=== PATIENT | male | born 1960 | race Caucasian/White ===

== ENCOUNTER 2019-02-23 21:45 | Inpatient (IN) ==
[2019-02-23] MEDS ORDERED: Calcium Gluconate 2,000 MG in 0.9 % Sodium Chloride 100 ML IVPB ONE (22:10)
[2019-02-24] MEDS ORDERED: Mag Hydrox/Al Hydrox/Simeth 30 ML UDC PO PRN (02:34)
[2019-02-24] MEDS ORDERED: *HR* LORazepam 2 MG/ML VIAL IM PRN (02:34)
[2019-02-24] MEDS ORDERED: MOM Conc 10 ML UD.LIQ PO PRN (02:34)
[2019-02-24] MEDS ORDERED: Haloperidol Lactate 5 MG/ML VIAL IM PRN (02:34)
[2019-02-24] MEDS ORDERED: *HR* LORazepam 1 MG TABLET PO PRN (02:34)
[2019-02-24] MEDS: *HR* LORazepam 1 MG TABLET PO SCH ×4 (09:04→22:33)
[2019-02-24] MEDS: Folic Acid 1 MG TABLET PO SCH (09:05)
[2019-02-24] MEDS: Thiamine (B-1) 100 MG TABLET PO SCH (09:05)
[2019-02-24] MEDS: FLUoxetine 20 MG CAPSULE PO SCH (14:15)
[2019-02-24] MEDS: Gabapentin 300 MG CAPSULE PO SCH ×2 (14:15→22:26)
[2019-02-25] MEDS ORDERED: *HR* LORazepam 1 MG TABLET PO PRN ×4 (01:11→08:54)
[2019-02-25 08:07] LABS: Hepatitis B Surface Antigen Nonreactive (Nonreactive)
[2019-02-25] MEDS: Gabapentin 300 MG CAPSULE PO SCH ×3 (08:24→23:04)
[2019-02-25] MEDS: Thiamine (B-1) 100 MG TABLET PO SCH (08:25)
[2019-02-25] MEDS: FLUoxetine 20 MG CAPSULE PO SCH (08:25)
[2019-02-25] MEDS: Folic Acid 1 MG TABLET PO SCH (08:25)
[2019-02-25] MEDS: *HR* LORazepam 1 MG TABLET PO SCH ×4 (09:50→20:00)
[2019-02-26] MEDS: Gabapentin 300 MG CAPSULE PO SCH ×3 (09:02→21:21)
[2019-02-26] MEDS: Thiamine (B-1) 100 MG TABLET PO SCH (09:02)
[2019-02-26] MEDS: Folic Acid 1 MG TABLET PO SCH (09:02)
[2019-02-26] MEDS: FLUoxetine 20 MG CAPSULE PO SCH (09:02)
[2019-02-26] MEDS: *HR* LORazepam 1 MG TABLET PO SCH ×5 (09:06→21:20)
[2019-02-26] MEDS: Sulfamethoxazole/Trimeth DS 1 EACH TABLET PO SCH ×2 (17:45→21:27)
[2019-02-26] MEDS: hydrOXYzine pamoate 25 MG CAPSULE PO PRN (21:20)
[2019-02-26] MEDS: Acetaminophen 325 MG TABLET PO PRN (21:20)
[2019-02-27] MEDS: Sulfamethoxazole/Trimeth DS 1 EACH TABLET PO SCH ×2 (08:49→20:59)
[2019-02-27] MEDS: Thiamine (B-1) 100 MG TABLET PO SCH (08:50)
[2019-02-27] MEDS: Folic Acid 1 MG TABLET PO SCH (08:50)
[2019-02-27] MEDS: FLUoxetine 20 MG CAPSULE PO SCH (08:50)
[2019-02-27] MEDS: Gabapentin 300 MG CAPSULE PO SCH ×3 (08:51→20:59)
[2019-02-27] MEDS: *HR* LORazepam 1 MG TABLET PO SCH (08:52)
[2019-02-27 23:19] LABS: Hepatitis B Core IgM Nonreactive (Nonreactive)
[2019-02-27 23:21] LABS: Hepatitis A Antibody IgM Nonreactive (Nonreactive)
[2019-02-28 00:25] LABS: Hepatitis C Virus Antibody Reactive (Nonreactive)
[2019-02-28] MEDS: Sulfamethoxazole/Trimeth DS 1 EACH TABLET PO SCH ×2 (09:07→20:33)
[2019-02-28] MEDS: FLUoxetine 20 MG CAPSULE PO SCH (09:07)
[2019-02-28] MEDS: Gabapentin 300 MG CAPSULE PO SCH ×3 (09:07→20:33)
[2019-02-28] MEDS: Thiamine (B-1) 100 MG TABLET PO SCH (09:07)
[2019-02-28] MEDS: Folic Acid 1 MG TABLET PO SCH (09:07)
[2019-02-28] MEDS: hydrOXYzine pamoate 25 MG CAPSULE PO PRN (20:33)
[2019-02-28] MEDS: traZODone 50 MG TABLET PO PRN (20:33)
[2019-03-01] MEDS: Thiamine (B-1) 100 MG TABLET PO SCH (08:31)
[2019-03-01] MEDS: Folic Acid 1 MG TABLET PO SCH (08:31)
[2019-03-01] MEDS: Sulfamethoxazole/Trimeth DS 1 EACH TABLET PO SCH ×2 (08:32→21:42)
[2019-03-01] MEDS: FLUoxetine 20 MG CAPSULE PO SCH (08:32)
[2019-03-01] MEDS: Gabapentin 300 MG CAPSULE PO SCH ×3 (08:32→21:42)
[2019-03-01] MEDS: Acetaminophen 325 MG TABLET PO PRN (14:29)
[2019-03-01] MEDS: hydrOXYzine pamoate 25 MG CAPSULE PO PRN (21:42)
[2019-03-01] MEDS: traZODone 50 MG TABLET PO PRN (21:42)
[2019-03-02] MEDS: Acetaminophen 325 MG TABLET PO PRN (00:21)
[2019-03-02] MEDS: Thiamine (B-1) 100 MG TABLET PO SCH (08:55)
[2019-03-02] MEDS: Sulfamethoxazole/Trimeth DS 1 EACH TABLET PO SCH (08:55)
[2019-03-02] MEDS: Folic Acid 1 MG TABLET PO SCH (08:55)
[2019-03-02] MEDS: Gabapentin 300 MG CAPSULE PO SCH (08:55)
[2019-03-02] MEDS: FLUoxetine 20 MG CAPSULE PO SCH (08:55)
[2019-03-02 09:10] VITALS: BP 110/69
== END 2019-03-02 14:25 | disposition home or self-care (01) | DRG 751 ==
LOC: EMEROOARM 21:45 → SUATTDRO 02-24 02:24 → 1ANU 02-24 02:24
PROVIDERS: ADMIT Psychiatry & Neurology Psychiatry; ATTEND Psychiatry & Neurology Psychiatry

== ENCOUNTER 2019-05-02 04:40 | Inpatient (IN) ==
[2019-05-02 05:19] LABS: Basophils # 0.1 K/mcL (0.0-0.2); Basophils % 0.7 %; Bilirubin,Urine Negative (Negative); Blood,Urine Negative (Negative); Clarity,Urine Clear (Clear); Color,Urine Yellow (Yellow); Eosinophils # 0.3 K/mcL (0.0-0.6); Eosinophils % 3.3 %; Glucose,Urine (UA) Normal (Normal); Hematocrit 38.3 % (37.5-50.1); Hemoglobin 13.5 g/dL (12.9-16.9); Immature Granulocytes % 0.3 % (0-4); Ketones,Urine Negative (Negative); Leukocyte Esterase,Urine Negative (Negative); Lymphocytes # 2.9 K/mcL (0.6-4.6); Lymphocytes % 38.4 %; Mean Corpuscular HGB Conc 35.2 g/dL (31.6-35.5); Mean Corpuscular Hemoglobin 33.8 pg (28.0-33.3); Mean Corpuscular Volume 95.8 fL (83.0-100.0); Mean Platelet Volume 10.9 fL (9.4-12.4); Monocytes % 13.7 %; Neutrophils # 3.3 K/mcL (1.6-8.9); Nitrite,Urine Negative (Negative); Platelet Count 112 K/mcL (140-400); Protein,Urine Negative (Neg-Trace); Red Cell Distribution Width 15.5 % (11.5-14.5); Segmented Neutrophils % 43.6 %; Specific Gravity,Urine 1.009 (1.010-1.025); Urobilinogen,Urine Normal (Normal); White Blood Count 7.5 K/mcL (4.3-11.1)
[2019-05-02 05:40] LABS: Acetaminophen < 10 mcg/mL (10-20); BUN/Creatinine Ratio 18 (6-26); Blood Urea Nitrogen 10 mg/dL (6-20); Calcium 8.9 mg/dL (8.6-10.3); Carbon Dioxide 19 mEq/L (23-29); Chloride 108 mEq/L (98-107); Ethanol 343 mg/dL (Less than 10); Glucose 117 mg/dL (70-105); Magnesium 2.1 mg/dL (1.6-2.6); Osmolality,Calculated 292 (280-300); Potassium 4.1 mEq/L (3.5-5.1); Salicylate < 2.5 mg/dL (15.0-30.0); Sodium 141 mEq/L (136-145); eGFR For African Americans > 60 (> 60); eGFR For Non-African Americans > 60 (> 60)
[2019-05-02 05:44] LABS: Amphetamine Screen,Urine Positive ng/mL (Cutoff=1000); Barbiturate Screen,Urine Negative ng/mL (Cutoff=200); Benzodiazepines Screen,Urine Negative ng/mL (Cutoff=200); Cannabinoid Screen,Urine Negative ng/mL (Cutoff = 50); Cocaine Screen,Urine Negative ng/mL (Cutoff= 300); Opiate Screen,Urine Negative ng/mL (Cutoff=300); Phencyclidine Screen,Urine Negative ng/mL (Cutoff=25)
[2019-05-02] MEDS ORDERED: Naloxone 0.4 MG/ML INJ IVP PRN (07:28)
[2019-05-02] MEDS ORDERED: traZODone 50 MG TABLET PO PRN (08:00)
[2019-05-02] MEDS ORDERED: hydrOXYzine pamoate 25 MG CAPSULE PO PRN (08:00)
[2019-05-02] MEDS ORDERED: *HR* LORazepam 1 MG TABLET PO SCH (08:15)
[2019-05-02] MEDS ORDERED: Folic Acid 1 MG TABLET PO SCH (09:00)
[2019-05-02] MEDS ORDERED: Thiamine (B-1) 100 MG TABLET PO SCH (09:00)
[2019-05-02] MEDS ORDERED: FLUoxetine 20 MG CAPSULE PO SCH (09:00)
[2019-05-02] MEDS: Gabapentin 300 MG CAPSULE PO SCH ×2 (09:25→16:33)
[2019-05-02] MEDS ORDERED: *HR* LORazepam 2 MG/ML VIAL IVP PRN ×2 (12:59)
[2019-05-02] MEDS: *HR* LORazepam 2 MG/ML VIAL IVP PRN ×2 (13:54→17:31)
[2019-05-02] MEDS ORDERED: Acetaminophen 325 MG TABLET PO PRN (14:41)
[2019-05-02 15:38] VITALS: BP 126/71
[2019-05-02] MEDS ORDERED: *HR* Heparin 5,000 UNIT/ML VIAL SQ SCH (18:00)
== END 2019-05-02 18:00 | DRG 751 ==
LOC: EMEROOARM 04:40 → CDU 04:40
PROVIDERS: ADMIT Family Medicine; ATTEND Family Medicine

== ENCOUNTER 2019-05-28 06:09 | Inpatient (IN) ==
[2019-05-28] MEDS ORDERED: CeFAZolin Syr 2,000MG/20 ML 2,000 MG/20 ML SYRINGE IVPB ONE (06:29)
[2019-05-28] MEDS ORDERED: Ringers Solution, Lactated 1,000 ML IVC SCH ×2 (06:30→10:21)
[2019-05-28] MEDS ORDERED: *HR* FentaNYL (PF) 100 MCG/2 ML VIAL ONE (07:00)
[2019-05-28] MEDS ORDERED: *HR* Midazolam HCl 2 MG/2 ML VIAL ONE (07:00)
[2019-05-28] MEDS ORDERED: *HR* Propofol 200 MG/20 ML VIAL IVP ONE (07:00)
[2019-05-28] MEDS ORDERED: *HR* Succinylcholine 200 MG/10 ML VIAL IVP ONE (07:01)
[2019-05-28] MEDS ORDERED: Ondansetron 4 MG/2 ML VIAL ONE (07:01)
[2019-05-28] MEDS ORDERED: Lidocaine -MPF 2% 2 ML VIAL ONE (07:01)
[2019-05-28] MEDS ORDERED: Lidocaine HCL 4 ML Topical Solution (Laryng-O-Jet Kit Sterile Pak) TP ONE (07:01)
[2019-05-28] MEDS ORDERED: Dexamethasone 4 MG/ML VIAL ONE (07:01)
[2019-05-28] MEDS ORDERED: Ropivacaine/PF 0.5% 30 ML VIAL ONE (07:14)
[2019-05-28] MEDS ORDERED: Famotidine 20 MG/2 ML VIAL IVP ONE (07:17)
[2019-05-28] MEDS ORDERED: Acetaminophen IV 1,000 MG/100 ML INFUS..BTL IVPB ONE (07:17)
[2019-05-28] MEDS ORDERED: Pregabalin 75 MG CAPSULE PO ONE (07:17)
[2019-05-28] MEDS ORDERED: Ethanol\\Acetic Acid\\Na Ace\\Ben 1,000 ML IRRIG.SOLN IR ONE (07:23)
[2019-05-28] MEDS ORDERED: EPHEDrine 50 MG/ML VIAL ONE (08:29)
[2019-05-28] MEDS ORDERED: *HR* HYDROmorphone 2 MG TABLET PO PRN (08:31)
[2019-05-28] MEDS ORDERED: *HR* Labetalol 20 MG/4 ML SYRINGE IVP PRN (08:31)
[2019-05-28] MEDS ORDERED: *HR* OxyCODONE Immed Rel 5 MG TABLET PO PRN (08:31)
[2019-05-28] MEDS ORDERED: *HR* Promethazine 25 MG/ML VIAL IVP PRN (08:31)
[2019-05-28] MEDS ORDERED: Ketorolac 30 MG/ML VIAL ONE (09:01)
[2019-05-28] MEDS: *HR* HYDROmorphone (PF) 1 MG/ML SYRINGE IVP PRN ×2 (09:31→09:38)
[2019-05-28 10:11] LABS: Hematocrit 37.2 % (37.5-50.1); Hemoglobin 12.6 g/dL (12.9-16.9)
[2019-05-28] MEDS ORDERED: Naloxone 0.4 MG/ML INJ IVP PRN (10:21)
[2019-05-28] MEDS ORDERED: Ondansetron 4 MG/2 ML VIAL IVP PRN (10:21)
[2019-05-28] MEDS ORDERED: *HR* OxyCODONE/APAP 5/325 TABLET PO PRN (10:21)
[2019-05-28] MEDS ORDERED: MOM Conc 10 ML UD.LIQ PO PRN (10:21)
[2019-05-28] MEDS ORDERED: Sennosides 8.6 MG TABLET PO PRN (10:21)
[2019-05-28] MEDS ORDERED: Temazepam 15 MG CAPSULE PO PRN (10:21)
[2019-05-28] MEDS ORDERED: *HR* PHENYLEPHRINE 1,000 MCG/10 ML SYRINGE IVP ONE (11:01)
[2019-05-28] MEDS: FLUoxetine 20 MG CAPSULE PO SCH (11:32)
[2019-05-28] MEDS: Gabapentin 300 MG CAPSULE PO SCH ×2 (16:32→21:24)
[2019-05-28] MEDS ORDERED: *HR* Enoxaparin 30 MG/0.3 ML SYRINGE SQ SCH (18:00)
[2019-05-28] MEDS: *HR* OxyCODONE Immed Rel 5 MG TABLET PO PRN ×2 (18:10→23:50)
[2019-05-28] MEDS: *HR* Enoxaparin 30 MG/0.3 ML SYRINGE SQ SCH (18:11)
[2019-05-29] MEDS: *HR* OxyCODONE Immed Rel 5 MG TABLET PO PRN ×2 (06:10→10:21)
[2019-05-29] MEDS: *HR* Enoxaparin 30 MG/0.3 ML SYRINGE SQ SCH (06:18)
[2019-05-29 06:43] LABS: Hemoglobin 11.9 g/dL (12.9-16.9)
[2019-05-29 07:02] LABS: BUN/Creatinine Ratio 21 (6-26); Blood Urea Nitrogen 15 mg/dL (6-20); Calcium 8.8 mg/dL (8.6-10.3); Carbon Dioxide 24 mEq/L (23-29); Chloride 104 mEq/L (98-107); Glucose 143 mg/dL (70-105); Osmolality,Calculated 285 (280-300); Potassium 4.5 mEq/L (3.5-5.1); Sodium 136 mEq/L (136-145); eGFR For African Americans > 60 (> 60); eGFR For Non-African Americans > 60 (> 60)
[2019-05-29] MEDS: FLUoxetine 20 MG CAPSULE PO SCH (09:22)
[2019-05-29] MEDS: Gabapentin 300 MG CAPSULE PO SCH (09:23)
[2019-05-29 11:34] VITALS: BP 134/81
== END 2019-05-29 11:56 | disposition home health service (06) | DRG 322 ==
LOC: SAMDAY 06:09 → 3NENU 10:14
PROVIDERS: ADMIT Orthopaedic Surgery; ATTEND Orthopaedic Surgery

== ENCOUNTER 2019-05-29 18:25 | Observation (INO) ==
[2019-05-29] MEDS ORDERED: 0.9 % Sodium Chloride 1,000 ML IVC ONE (18:34)
[2019-05-29 18:58] LABS: Eosinophils % 0.2 %; Hematocrit 38.4 % (37.5-50.1); Hemoglobin 12.6 g/dL (12.9-16.9); Immature Granulocytes % 0.5 % (0-4); Lymphocytes % 13.7 %; Mean Corpuscular HGB Conc 32.8 g/dL (31.6-35.5); Mean Corpuscular Hemoglobin 32.8 pg (28.0-33.3); Mean Platelet Volume 10.9 fL (9.4-12.4); Monocytes % 7.9 %; Platelet Count 103 K/mcL (140-400); Red Blood Count 3.84 M/mcL (4.19-5.50); Red Cell Distribution Width 13.4 % (11.5-14.5); Segmented Neutrophils % 77.5 %; White Blood Count 16.5 K/mcL (4.3-11.1)
[2019-05-29 18:59] LABS: Basophils % 0.2 %; Lymphocytes # 2.3 K/mcL (0.6-4.6); Monocytes # 1.3 K/mcL (0.0-1.3); Neutrophils # 12.8 K/mcL (1.6-8.9)
[2019-05-29 19:02] LABS: INR 1.3; Prothrombin Time 14.6 Seconds (9.4-12.1)
[2019-05-29 19:05] LABS: Activated Partial Thrombo Time 28.9 Seconds (26.0-36.0)
[2019-05-29 19:16] LABS: Alanine Aminotransferase 26 Units/L (7-52); Albumin 3.5 g/dL (3.5-5.7); Albumin/Globulin Ratio 0.9 (1.1-2.2); Alkaline Phosphatase 131 Units/L (34-104); Aspartate Amino Transferase 44 Units/L (13-39); BUN/Creatinine Ratio 19 (6-26); Bilirubin,Direct 0.2 mg/dL (0.0-0.2); Bilirubin,Indirect 0.5 mg/dL (0.0-1.0); Bilirubin,Total 0.7 mg/dL (0.3-1.0); Blood Urea Nitrogen 18 mg/dL (6-20); Calcium 8.7 mg/dL (8.6-10.3); Carbon Dioxide 21 mEq/L (23-29); Chloride 103 mEq/L (98-107); Ethanol < 10 mg/dL (Less than 10); Globulin 3.9 g/dL (2.4-3.5); Glucose 147 mg/dL (70-105); Osmolality,Calculated 289 (280-300); Potassium 3.9 mEq/L (3.5-5.1); Sodium 137 mEq/L (136-145); Total Protein 7.4 g/dL (6.4-8.9); Troponin I < 0.03 ng/mL (< 0.04); eGFR For African Americans > 60 (> 60); eGFR For Non-African Americans > 60 (> 60)
[2019-05-29 20:52] LABS: Bilirubin,Urine Negative (Negative); Blood,Urine Negative (Negative); Clarity,Urine Clear (Clear); Color,Urine Yellow (Yellow); Glucose,Urine (UA) Normal (Normal); Ketones,Urine Negative (Negative); Leukocyte Esterase,Urine Negative (Negative); Nitrite,Urine Negative (Negative); Protein,Urine Trace mg/dL (Neg-Trace); Specific Gravity,Urine 1.024 (1.010-1.025); Urobilinogen,Urine Normal (Normal)
[2019-05-29 21:19] LABS: Amphetamine Screen,Urine Negative ng/mL (Cutoff=1000); Barbiturate Screen,Urine Negative ng/mL (Cutoff=200); Benzodiazepines Screen,Urine Positive ng/mL (Cutoff=200); Cannabinoid Screen,Urine Negative ng/mL (Cutoff = 50); Cocaine Screen,Urine Negative ng/mL (Cutoff= 300); Opiate Screen,Urine Positive ng/mL (Cutoff=300); Phencyclidine Screen,Urine Negative ng/mL (Cutoff=25)
[2019-05-29] MEDS ORDERED: *HR* OxyCODONE Immed Rel 15 MG TABLET PO STA (21:51)
[2019-05-29] MEDS ORDERED: *HR* OxyCODONE Immed Rel 5 MG TABLET PO STA (21:53)
[2019-05-30] MEDS ORDERED: Acetaminophen 325 MG TABLET PO PRN (07:22)
[2019-05-30] MEDS ORDERED: Ondansetron 4 MG/2 ML VIAL IVP PRN (07:22)
[2019-05-30] MEDS ORDERED: Naloxone 0.4 MG/ML INJ IVP PRN (07:22)
[2019-05-30] MEDS ORDERED: Ringers Solution, Lactated 1,000 ML IVC SCH (07:30)
[2019-05-30] MEDS: FLUoxetine 20 MG CAPSULE PO SCH (09:56)
[2019-05-30] MEDS: *HR* OxyCODONE/APAP 5/325 TABLET PO PRN ×3 (09:57→22:25)
[2019-05-30] MEDS: Ampicillin/Sulbactam 1,500 MG in 0.9 % Sodium Chloride Mini Bag 100 ML IVPB SCH ×4 (09:57→22:25)
[2019-05-30] MEDS: Gabapentin 300 MG CAPSULE PO SCH ×3 (09:57→20:09)
[2019-05-30] MEDS: *HR* Heparin 5,000 UNIT/ML VIAL SQ SCH ×2 (16:08→20:09)
[2019-05-30] MEDS ORDERED: traZODone 50 MG TABLET PO PRN (21:00)
[2019-05-31] MEDS: *HR* OxyCODONE/APAP 5/325 TABLET PO PRN ×2 (04:33→10:06)
[2019-05-31] MEDS: *HR* Heparin 5,000 UNIT/ML VIAL SQ SCH (05:05)
[2019-05-31] MEDS: Ampicillin/Sulbactam 1,500 MG in 0.9 % Sodium Chloride Mini Bag 100 ML IVPB SCH (05:06)
[2019-05-31] MEDS: FLUoxetine 20 MG CAPSULE PO SCH (10:06)
[2019-05-31] MEDS: Gabapentin 300 MG CAPSULE PO SCH (10:06)
[2019-05-31 10:55] VITALS: BP 106/54
[2019-05-31 12:19] LABS: Red Cell Distribution Width 12.9 % (11.5-14.5)
[2019-05-31 12:21] LABS: Hematocrit 31.6 % (37.5-50.1); Hemoglobin 10.9 g/dL (12.9-16.9); Immature Platelets 6.2 % (1.1-6.1); Mean Corpuscular HGB Conc 34.5 g/dL (31.6-35.5); Mean Corpuscular Hemoglobin 33.3 pg (28.0-33.3); Mean Corpuscular Volume 96.6 fL (83.0-100.0); Red Blood Count 3.27 M/mcL (4.19-5.50); White Blood Count 5.1 K/mcL (4.3-11.1)
[2019-05-31 12:50] LABS: BUN/Creatinine Ratio 15 (6-26); Blood Urea Nitrogen 11 mg/dL (6-20); Calcium 8.4 mg/dL (8.6-10.3); Carbon Dioxide 24 mEq/L (23-29); Chloride 106 mEq/L (98-107); Glucose 115 mg/dL (70-105); Osmolality,Calculated 284 (280-300); Potassium 3.6 mEq/L (3.5-5.1); Sodium 137 mEq/L (136-145); eGFR For African Americans > 60 (> 60); eGFR For Non-African Americans > 60 (> 60)
== END 2019-05-31 13:30 | disposition home or self-care (01) ==
LOC: CDU 18:25 → EMEROOARM 18:25 → CDU 23:33 → 3BNU 05-30 14:41
PROVIDERS: ADMIT Family Medicine; ATTEND Family Medicine

== ENCOUNTER 2019-06-03 02:40 | Inpatient (IN) ==
[2019-06-03 03:55] LABS: Bilirubin,Urine Small (Negative); Blood,Urine Negative (Negative); Clarity,Urine Clear (Clear); Color,Urine Dark Yellow (Yellow); Glucose,Urine (UA) Normal (Normal); Ketones,Urine Negative (Negative); Leukocyte Esterase,Urine Negative (Negative); Nitrite,Urine Negative (Negative); PH,Urine 5.5 pH Units (5.0-8.0); Protein,Urine Negative (Neg-Trace); Specific Gravity,Urine 1.023 (1.010-1.025); Urobilinogen,Urine Normal (Normal)
[2019-06-03 04:06] LABS: Amphetamine Screen,Urine Negative ng/mL (Cutoff=1000); Barbiturate Screen,Urine Negative ng/mL (Cutoff=200); Benzodiazepines Screen,Urine Negative ng/mL (Cutoff=200); Cannabinoid Screen,Urine Negative ng/mL (Cutoff = 50); Cocaine Screen,Urine Negative ng/mL (Cutoff= 300); Opiate Screen,Urine Negative ng/mL (Cutoff=300); Phencyclidine Screen,Urine Negative ng/mL (Cutoff=25)
[2019-06-03 05:01] LABS: Basophils % 0.6 %; Eosinophils # 0.3 K/mcL (0.0-0.6); Eosinophils % 6.6 %; Hematocrit 33.2 % (37.5-50.1); Hemoglobin 12.1 g/dL (12.9-16.9); Immature Platelets 3.7 % (1.1-6.1); Lymphocytes # 1.8 K/mcL (0.6-4.6); Lymphocytes % 36.7 %; Mean Corpuscular HGB Conc 36.4 g/dL (31.6-35.5); Mean Corpuscular Hemoglobin 33.5 pg (28.0-33.3); Mean Platelet Volume 10.3 fL (9.4-12.4); Monocytes # 0.7 K/mcL (0.0-1.3); Monocytes % 13.6 %; Neutrophils # 2.1 K/mcL (1.6-8.9); Platelet Count 103 K/mcL (140-400); Red Blood Count 3.61 M/mcL (4.19-5.50)
[2019-06-03 05:06] LABS: Acetaminophen < 10 mcg/mL (10-20); BUN/Creatinine Ratio 10 (6-26); Blood Urea Nitrogen 6 mg/dL (6-20); Calcium 8.3 mg/dL (8.6-10.3); Carbon Dioxide 20 mEq/L (23-29); Chloride 110 mEq/L (98-107); Chol/HDL Ratio 4.6 (0-4.9); Cholesterol 101 mg/dL (< 200); Ethanol 89 mg/dL (Less than 10); Glucose 97 mg/dL (70-105); HDL Cholesterol 22 mg/dL (40-59); LDL Cholesterol,Calculated 68 mg/dL (0-99); Osmolality,Calculated 286 (280-300); Potassium 4.1 mEq/L (3.5-5.1); Salicylate < 2.5 mg/dL (15.0-30.0); Sodium 139 mEq/L (136-145); Triglycerides 57 mg/dL (< 150); eGFR For African Americans > 60 (> 60); eGFR For Non-African Americans > 60 (> 60)
[2019-06-03 05:12] LABS: Segmented Neutrophils % 42.5 %
[2019-06-03] MEDS ORDERED: Ibuprofen 600 MG TABLET PO ONE (10:01)
[2019-06-03] MEDS ORDERED: traZODone 50 MG TABLET PO PRN (11:17)
[2019-06-03] MEDS ORDERED: *HR* LORazepam 2 MG/ML VIAL IM PRN (11:17)
[2019-06-03] MEDS ORDERED: Haloperidol Lactate 5 MG/ML VIAL IM PRN (11:17)
[2019-06-03] MEDS ORDERED: Mag Hydrox/Al Hydrox/Simeth 30 ML UDC PO PRN (11:17)
[2019-06-03] MEDS ORDERED: MOM Conc 10 ML UD.LIQ PO PRN (11:17)
[2019-06-03] MEDS ORDERED: *HR* LORazepam 1 MG TABLET PO SCH (11:30)
[2019-06-03] MEDS ORDERED: *HR* LORazepam 1 MG TABLET PO PRN (14:42)
[2019-06-03] MEDS: Vitamin B Complex/Vit C/Vit E 1 EACH TABLET PO SCH (15:12)
[2019-06-03] MEDS: Folic Acid 1 MG TABLET PO SCH (15:12)
[2019-06-03] MEDS: Thiamine (B-1) 100 MG TABLET PO SCH (15:12)
[2019-06-03] MEDS: hydrOXYzine pamoate 25 MG CAPSULE PO PRN (20:34)
[2019-06-03] MEDS: Acetaminophen 325 MG TABLET PO PRN (20:34)
[2019-06-04] MEDS: Acetaminophen 325 MG TABLET PO PRN ×2 (05:47→21:24)
[2019-06-04] MEDS: Vitamin B Complex/Vit C/Vit E 1 EACH TABLET PO SCH (09:57)
[2019-06-04] MEDS: Folic Acid 1 MG TABLET PO SCH (09:58)
[2019-06-04] MEDS: Thiamine (B-1) 100 MG TABLET PO SCH (09:58)
[2019-06-04 10:52] LABS: Estimated Average Glucose 88 mg/dl
[2019-06-04] MEDS: FLUoxetine 20 MG CAPSULE PO SCH (12:15)
[2019-06-04] MEDS: Mirtazapine 15 MG TABLET PO SCH (21:24)
[2019-06-04] MEDS: hydrOXYzine pamoate 25 MG CAPSULE PO PRN (21:24)
[2019-06-05] MEDS: Vitamin B Complex/Vit C/Vit E 1 EACH TABLET PO SCH (09:29)
[2019-06-05] MEDS: FLUoxetine 20 MG CAPSULE PO SCH (09:29)
[2019-06-05] MEDS: Thiamine (B-1) 100 MG TABLET PO SCH (09:30)
[2019-06-05] MEDS: Folic Acid 1 MG TABLET PO SCH (09:30)
[2019-06-05] MEDS: Ibuprofen 800 MG TABLET PO PRN ×2 (10:16→20:57)
[2019-06-05] MEDS: hydrOXYzine pamoate 25 MG CAPSULE PO PRN (20:57)
[2019-06-05] MEDS: Mirtazapine 15 MG TABLET PO SCH (20:57)
[2019-06-06] MEDS: Vitamin B Complex/Vit C/Vit E 1 EACH TABLET PO SCH (08:23)
[2019-06-06] MEDS: Thiamine (B-1) 100 MG TABLET PO SCH (08:23)
[2019-06-06] MEDS: FLUoxetine 20 MG CAPSULE PO SCH (08:23)
[2019-06-06] MEDS: Folic Acid 1 MG TABLET PO SCH (08:23)
[2019-06-06] MEDS: Ibuprofen 800 MG TABLET PO PRN ×2 (09:11→20:50)
[2019-06-06] MEDS: Mirtazapine 15 MG TABLET PO SCH (20:50)
[2019-06-07] MEDS: Ibuprofen 800 MG TABLET PO PRN (07:18)
[2019-06-07] MEDS: FLUoxetine 20 MG CAPSULE PO SCH (08:28)
[2019-06-07 08:29] VITALS: BP 106/79
[2019-06-07] MEDS: Thiamine (B-1) 100 MG TABLET PO SCH (08:29)
[2019-06-07] MEDS: Folic Acid 1 MG TABLET PO SCH (08:29)
[2019-06-07] MEDS: Vitamin B Complex/Vit C/Vit E 1 EACH TABLET PO SCH (08:29)
== END 2019-06-07 12:50 | disposition home or self-care (01) | DRG 751 ==
LOC: EMEROOARM 02:40 → 1ANU 10:51
PROVIDERS: ADMIT Psychiatry & Neurology Psychiatry; ATTEND Psychiatry & Neurology Psychiatry